=== PATIENT | male | born 1940 | race Caucasian/White ===

== ENCOUNTER 2016-05-08 16:58 | Inpatient (IN) | payer OTHER ==
[2016-05-08] MEDS ORDERED: NS 500 ML IV ONE (17:13)
[2016-05-08] MEDS ORDERED: NS 1,000 ML IV ONE (17:24)
[2016-05-08 18:05] LABS: INR 1.09 (0.83-1.16)
[2016-05-08 18:10] LABS: % IMMATURE GRANULYOCYTES 1.2 % (0.0-1.1); ABSOLUTE IMMATURE GRANULOCYTES 0.14 10^3/uL (0.00-0.10); ADD DIFF? NO; HEMATOCRIT 38.1 % (40.0-51.0); HEMOGLOBIN 13.1 g/dL (13.7-17.5); MEAN CELL HEMOGLOBIN CONCENTR. 34.4 g/dL (32.4-36.7); MEAN PLATELET VOLUME 11.3 fL (8.7-11.7); PLATELET COUNT 112 10^3/uL (150-400); RED BLOOD CELL COUNT 3.97 10^6/uL (4.40-6.38); RED CELL DISTRIBUTION WIDTH 13.9 % (11.5-15.2)
[2016-05-08 18:11] LABS: ADD MORPH? NO; ADD SCAN? NO
[2016-05-08 18:19] LABS: ALANINE AMINOTRANSFERASE 53 IU/L (21-72); ALBUMIN 4.1 g/dL (3.5-5.0); ALKALINE PHOSPHATASE 69 IU/L (38-126); ANION GAP 12 mEq/L (8-16); ASPARTATE AMINOTRANSFERASE 71 IU/L (17-59); BILIRUBIN,TOTAL 1.2 mg/dL (0.1-1.4); BILIRUBIN-CONJUGATED 0.3 mg/dL (0.0-0.5); BILIRUBIN-UNCONJUGATED 0.9 mg/dL (0.0-1.1); CALCIUM 9.7 mg/dL (8.5-10.4); CARBON DIOXIDE 23 mEq/l (22-31); CHLORIDE 105 mEq/L (97-110); CREATININE 1.2 mg/dL (0.7-1.3); GLOMERULAR FILTRATION RATE 59; GLUCOSE 84 mg/dL (70-100); POTASSIUM 4.3 mEq/L (3.5-5.2); SODIUM 140 mEq/L (134-144); TOTAL PROTEIN 6.7 g/dL (6.3-8.2)
[2016-05-08 18:28] LABS: TROPONIN I 0.067 ng/mL (0-0.034)
--- NOTE | 2016-05-08 18:29 | EDPHY ---
H & P Stated Complaint: Found by neighbors >1Hr on floor, unable to get up, inc urine , hypoxic 86%R Time Seen by Provider: 05/08/16 17:03 HPI/ROS: Chief complaint: Found down, altered mental status History of present illness: This is a 75-year-old male brought to the emergency department by EMS after being found down in his apartment. Apparently neighbors found him on the floor. They believe he was on the ground for at least an hour if not more. EMS was called to provide lift assist. EMS reports when they got to the patient's house he seemed somewhat altered and unable to get himself up or ambulate at which time they brought him here. On my evaluation patient appears altered, when asked how he feels he states he feels well, but further discussion becomes garbled. Review of systems: Unable to obtain secondary level of consciousness - Personal History Current Tetanus Diphtheria and Acellular Pertussis (TDAP): Yes Tetanus Vaccine Date: 07/25/2013 - Medical/Surgical History Hx Asthma: Yes Hx Chronic Respiratory Disease: No Hx Diabetes: No Hx Cardiac Disease: Yes Hx Renal Disease: No Hx Cirrhosis: No Hx Alcoholism: No Hx HIV/AIDS: No Hx Splenectomy or Spleen Trauma: No Other PMH: BOWEL RESECTION S/P SBO, MILD ASTHMA, CHRONIC SINUSITUS, DYSLIPIDEMIA , DEPRESSION, GOUT, HYPOTHYROIDISM, HTN,. L HAND PICHARDO, THYROID CA, PROSTATE CA ,. MENIERES - Social History Smoking Status: Former smoker - Physical Exam Exam: General Appearance: Alert, unwell appearing. Eyes: Pupils equal and round no pallor or injection. ENT, Mouth: Mucous membranes moist. Respiratory: Lung sounds are globally diminished. Cardiovascular: Regular rate and rhythm. Gastrointestinal: Abdomen is soft and non tender, no masses, bowel sounds normal. Neurological: Alert, not oriented. Decreased strength globally. Skin: Warm and dry, no rashes. Musculoskeletal: Neck is supple non tender. Extremities are symmetrical, full range of motion. Psychiatric: There is no agitation. Constitutional: Initial Vital Signs Temperature (C) 38.3 C 05/08/16 17:13 Heart Rate 99 05/08/16 17:13 Respiratory Rate 20 05/08/16 17:13 Blood Pressure 108/65 05/08/16 17:13 O2 Sat (%) 92 05/08/16 17:13 O2 Delivery Mode Nasal Cannula O2 (L/minute) 4 Allergies/Adverse Reactions: aspirin [Aspirin] Allergy (Severe, Verified 03/22/15 14:56) Asthma Exacerbation NSAIDS (Non-Steroidal Anti-Inflamma [Nsaids] Allergy (Severe, Verified 03/22/15 14:56) Asthma Exacerbation levofloxacin [From Levaquin] Allergy (Verified 03/22/15 14:56) Home Medications: Medication Instructions Recorded Albuterol [Proventil Inhaler HFA 2 puffs IH Q4 PRN 12/29/12 (*)] Atorvastatin Calcium [Lipitor 10 10 mg PO DAILY 12/29/12 mg (*)] Colchicine [Colchicine (*)] 0.6 mg PO DAILY 12/29/12 QUEtiapine FUMARATE [Seroquel 50 50 - 100 mg PO HS 12/29/12 mg (*)] buPROPion XL [Wellbutrin 150mg XL] 450 mg PO DAILY 12/29/12 busPIRone [Buspar (*)] 5 mg PO HS 12/29/12 Allopurinol [Allopurinol 100 MG 100 mg PO DAILY 03/22/15 (*)] Alprazolam 2 mg PO DAILY PRN 03/22/15 Bethistine 16mg 16 mg PO TID 03/22/15 Budesonide 1 mg IH DAILY 03/22/15 Budesonide/Formoterol 160/4.5 2 puffs IH BID 03/22/15 [Symbicort 160-4.5 Mcg Inh (*)] Esomeprazole Magnesium [Nexium] 20 mg PO DAILY 03/22/15 FEXOFENADINE HCL 60 mg PO BID 03/22/15 Imiquimod [Zyclara] 1 gm TP HS 03/22/15 Levothyroxine [Synthroid 125 mcg 250 mcg PO DAILY06 03/22/15 (*)] Lorazepam [Ativan] 0.5 mg PO BID PRN 03/22/15 Montelukast Sodium [Singulair 10 10 mg PO DAILY@1800 03/22/15 mg (*)] [place]-3 Ethyl Est-Lovaza [Lovaza 1 1 gm PO TID 03/22/15 gm (*)] Psyllium Seed (with Sugar) 1 each PO DAILY 03/22/15 [Metamucil Fiber Wafer] Spironolactone [Aldactone 25 MG 25 mg PO BID 03/22/15 (*)] Clopidogrel Bisulfate [Plavix (*)] 75 mg PO DAILY #30 tab 03/24/15 Atorvastatin Calcium [Lipitor 10 10 mg PO DAILY #30 tab 03/30/15 mg (*)] Cefuroxime Axetil [Ceftin (*)] 500 mg PO BID #12 tab 03/30/15 Clopidogrel Bisulfate [Plavix (*)] 75 mg PO DAILY #0 tab 03/30/15 Zolpidem Tartrate [Ambien 5MG (*)] 10 mg PO HS PRN #7 tab 03/30/15 predniSONE 20 mg PO DAILY #30 tablet 03/30/15 Medical Decision Making - Diagnostics Imaging: Chest x-ray as reviewed by myself and my attending physician Dr. Corona Solis concerning for early pneumonia, see report for specific details ED Course/Re-evaluation: Patient discussed with my secondary supervising physician Dr. Corona Solis. Patient presents to the emergency department with EMS after being found down and altered. On presentation patient is febrile and hypoxic. He is unwell appearing. Evaluation is concerning for developing pneumonia. Further he appears to have developed a rhabdomyolysis from lying on the floor. He does have mildly elevated troponin. Concerned that this is secondary to rhabdomyolysis. He is not able to take oral and is allergic to aspirin. He did meet sepsis screening criteria but did not meet criteria for severe sepsis. He is IV hydrated. At the recommendation of Mr. Asael Ledesma, patient's physician outpatient physical therapist assistant who will admit him he is started on cefepime 1 g IV and azithromycin 500 mg IV. Patient is admitted for further evaluation and care. Differential Diagnosis: Included but not limited to CVA, cardiac dysrhythmias, ACS, infections including pneumonia and influenza and urinary tract infection, electrolyte disturbances - Data Points Laboratory Results: Laboratory Results 05/08/16 17:35 05/08/16 17:35 05/08/16 05/08/16 05/08/16 17:35 17:35 17:35 WBC RBC Hgb Hct MCV MCH MCHC RDW Plt Count MPV Neut % (Auto) Lymph % (Auto) [place] % (Auto) Eos % (Auto) Baso % (Auto) Nucleat RBC Rel Count Absolute Neuts (auto) Absolute Lymphs (auto) Absolute Monos (auto) Absolute Eos (auto) Absolute Basos (auto) Absolute Nucleated RBC Immature Gran % Immature Gran # PT 14.0 SEC SEC (12.0-15.0) INR 1.09 (0.83-1.16) APTT 20.0 SEC L SEC (23.0-38.0) Sodium 140 mEq/L mEq/L (134-144) Potassium 4.3 mEq/L mEq/L (3.5-5.2) Chloride 105 mEq/L mEq/L (97-110) Carbon Dioxide 23 mEq/l mEq/l (22-31) Anion Gap 12 mEq/L mEq/L (8-16) BUN 28 mg/dL H mg/dL (7-23) Creatinine 1.2 mg/dL mg/dL (0.7-1.3) Estimated GFR 59 Glucose 84 mg/dL mg/dL (70-100) Calcium 9.7 mg/dL mg/dL (8.5-10.4) Total Bilirubin 1.2 mg/dL mg/dL (0.1-1.4) Conjugated Bilirubin 0.3 mg/dL mg/dL (0.0-0.5) Unconjugated Bilirubin 0.9 mg/dL mg/dL (0.0-1.1) AST 71 IU/L H IU/L (17-59) ALT 53 IU/L IU/L (21-72) Alkaline Phosphatase 69 IU/L IU/L (38-126) Creatine Kinase 4791 IU/L H IU/L (0-224) CK-MB (CK-2) Fraction 1.94 ng/mL ng/mL (0-3.19) CK-MB (CK-2) % 0.0 % % (0.0-4.0) Creatine Kinase Interp NEGATIVE (NEGATIVE) Troponin I 0.067 ng/mL H ng/mL (0-0.034) NT-Pro-B Natriuret Pep 420 pg/mL H pg/mL (0-125) Total Protein 6.7 g/dL g/dL (6.3-8.2) Albumin 4.1 g/dL g/dL (3.5-5.0) 05/08/16 05/08/16 17:35 17:25 WBC 12.12 10^3/uL H 10^3/uL (3.80-9.50) RBC 3.97 10^6/uL L 10^6/uL (4.40-6.38) Hgb 13.1 g/dL L g/dL (13.7-17.5) Hct 38.1 % L % (40.0-51.0) MCV 96.0 fL fL (81.5-99.8) MCH 33.0 pg pg (27.9-34.1) MCHC 34.4 g/dL g/dL (32.4-36.7) RDW 13.9 % % (11.5-15.2) Plt Count 112 10^3/uL L 10^3/uL (150-400) MPV 11.3 fL fL (8.7-11.7) Neut % (Auto) 87.8 % H % (39.3-74.2) Lymph % (Auto) 2.5 % L % (15.0-45.0) [place] % (Auto) 7.9 % % (4.5-13.0) Eos % (Auto) 0.4 % L % (0.6-7.6) Baso % (Auto) 0.2 % L % (0.3-1.7) Nucleat RBC Rel Count 0.0 % % (0.0-0.2) Absolute Neuts (auto) 10.64 10^3/uL H 10^3/uL (1.70-6.50) Absolute Lymphs (auto) 0.30 10^3/uL L 10^3/uL (1.00-3.00) Absolute Monos (auto) 0.96 10^3/uL H 10^3/uL (0.30-0.80) Absolute Eos (auto) 0.05 10^3/uL 10^3/uL (0.03-0.40) Absolute Basos (auto) 0.03 10^3/uL 10^3/uL (0.02-0.10) Absolute Nucleated RBC 0.00 10^3/uL 10^3/uL (0-0.01) Immature Gran % 1.2 % H % (0.0-1.1) Immature Gran # 0.14 10^3/uL H 10^3/uL (0.00-0.10) PT INR APTT Sodium Potassium Chloride Carbon Dioxide Anion Gap BUN Creatinine Estimated GFR Glucose Calcium Total Bilirubin 1.2 mg/dL mg/dL (0.1-1.4) Conjugated Bilirubin Unconjugated Bilirubin AST ALT Alkaline Phosphatase Creatine Kinase CK-MB (CK-2) Fraction CK-MB (CK-2) % Creatine Kinase Interp Troponin I NT-Pro-B Natriuret Pep Total Protein Albumin Medications Given: Discontinued Medications Sodium Chloride (Ns) 500 mls @ 0 mls/hr IV ONCE ONE PRN Reason: As Directed Stop: 05/08/16 17:14 Last Admin: 05/08/16 18:20 Dose: 500 mls Sodium Chloride (Ns) 1,000 mls @ 0 mls/hr IV ONCE ONE PRN Reason: Wide Open Stop: 05/08/16 17:25 Last Admin: 05/08/16 17:38 Dose: 1,000 mls Azithromycin 500 mg/ Dextrose 255 mls @ 255 mls/hr IV EDNOW ONE PRN Reason: Protocol Stop: 05/08/16 19:52 Last Admin: 05/08/16 19:51 Dose: 255 mls Cefepime HCl 1 gm/ Dextrose 50 mls @ 100 mls/hr IV EDNOW ONE PRN Reason: Protocol Stop: 05/08/16 19:22 Last Admin: 05/08/16 20:53 Dose: 50 mls Methylprednisolone Sodium Succinate (Solu-Medrol) 125 mg IVP ONCE ONE Stop: 05/08/16 23:31 Last Admin: 05/08/16 23:52 Dose: 125 mg Sodium Chloride (Ns *For Sepsis Order Set Only*) 2,994 ml 30 ml/kg (2994 ml) IV EDNOW ONE Stop: 05/08/16 19:02 Last Admin: 05/08/16 19:34 Dose: 2,994 ml Departure - Departure Disposition: [facility] Inpatient Acute Clinical Impression: Elevated troponin Pneumonia Qualifiers: Pneumonia type: due to unspecified organism Laterality: left Lung location: unspecified part of lung Qualified Code(s): J18.9 - Pneumonia, unspecified organism Rhabdomyolysis Qualifiers: Rhabdomyolysis type: non-traumatic Qualified Code(s): M62.82 - Rhabdomyolysis Condition: Fair
[2016-05-08 18:41] LABS: CK-MB INTERPRETATION NEGATIVE (NEGATIVE); CREATINE KINASE-MB FRACTION 1.94 ng/mL (0-3.19)
[2016-05-08] MEDS ORDERED: CEFEPIME HCL 1 GM in D5W 50 ML IV ONE (18:53)
[2016-05-08] MEDS ORDERED: AZITHROMYCIN IV 500 MG in D5W 250 ML IV ONE (18:53)
[2016-05-08] MEDS ORDERED: NS 1,000 ML BAG *FOR SEPSIS ORDER SET ONLY IV ONE (19:01)
[2016-05-08 19:11] LABS: BILIRUBIN,TOTAL 1.2 mg/dL (0.1-1.4)
[2016-05-08] MEDS ORDERED: ACETAMINOPHEN 325 MG TAB PO PRN (19:45)
[2016-05-08] MEDS ORDERED: NS 1,000 ML IV SCH (19:45)
[2016-05-08] MEDS ORDERED: ONDANSETRON 4 MG/2 ML VIAL IVP PRN (19:45)
[2016-05-08] MEDS ORDERED: ONDANSETRON DISINTEGRATING 4 MG TAB PO PRN (19:45)
[2016-05-08] MEDS ORDERED: diphenhydrAMINE 25 MG CAP PO PRN (19:45)
[2016-05-08] MEDS ORDERED: methylPREDNISolone SOD SUCC 125 MG/2 ML VIAL IVP ONE ×2 (19:54→23:30)
--- NOTE | 2016-05-08 20:05 | CPEKG ---
Heart Rate: 86 RR Interval: 698 P-R Interval: 208 QRSD Interval: 96 QT Interval: 372 QTC Interval: 445 P [place]: 47 QRS [place]: 71 T Wave [place]: 52 EKG Severity - ABNORMAL ECG - EKG Impression: SINUS RHYTHM EKG Impression: LEFT VENTRICULAR HYPERTROPHY Electronically Signed By: Corona Solis 08-May-2016 20:06:27
--- NOTE | 2016-05-08 20:44 | GHP ---
[f rep st] HISTORY AND PHYSICAL DATE OF ADMISSION: 05/08/2016 REASON FOR ADMISSION: Altered mental status, found down. Probable early pneumonia. HISTORY OF PRESENT ILLNESS: The patient was found down this afternoon in his apartment. He was see n by myself yesterday in our office with concerns over increasing lung congestion. The exam was [place] rly benign. He was given a Zithromax Z-Hubert. It sounds like he took his first 2 pills this morning. He states he had a fairly peaceful night but woke up this morning to significant increase in lung congestion and generally felt tired and shaky. He did a nebulizer treatment somewhere around mid da y and was excessively shaky. For this reason, he took 2 Valium tablets which he says were small alt pradeep the dose is somewhat unclear. He was then found by friends down and EMS services were called. His history other than that is somewhat sketchy. He has been having a sense of increasing asthma flare over the past 3 days. He has been using albuterol plus budesonide nebulizers, and he took 2 t ablets of Zithromax this morning. No other acute changes that he can recall. He denies any pain fro m any sense of fall or trauma. He denies pain from lying on the floor presumably for several hours. PAST MEDICAL HISTORY: Significant for CVA now on Plavix. He has an aspirin allergy. He has had so me mild speech deficits which have gradually improved. He has some right upper extremity weakness w hich was also improved. He has a fairly complex past history of asthma and pneumonia. He uses inha lers on a chronic basis. He has known atherosclerosis by heart scan score. He is on testosterone r eplacement. 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 ALLERGIES: Aspirin and NSAIDs due to flaring of asthma, Levaquin with tendon rupture. CURRENT MEDICATIONS: Zolpidem p.r.n. insomnia. He generally does not use this very frequently. We llbutrin XL 100 mg in the morning, quinine 200 mg daily, Lipitor 10 mg daily, chlorthalidone 50 mg p .o. q.a.m., colchicine 0.6 mg q.8 hours p.r.n. gout, albuterol and budesonide inhalers, mineral supp lements, Plavix 75 mg daily, vitamin D 5000 units daily, niacin 250 mg daily, psyllium, Xolair injec tion, Nexium, BuSpar, Singulair, omega-3 fish oil, levothyroxine total dose 250 mcg daily, spironola ctone 25 mg daily, allopurinol 600 mg daily, quetiapine total dose 100 mg nightly, Symbicort 1 inhal ation b.i.d. SOCIAL HISTORY: Lives independently. Has family out of town. Has social support with many friends . He does not smoke or drink. FAMILY HISTORY: Father , had complications with diabetes. Mother is , had a history of brain tumor. Siblings alive. Not much else is known. IMMUNIZATIONS: He has had a prior Pneumovax. He has had a flu vaccine this year. REVIEW OF SYSTEMS: Somewhat limited given altered mental status and sedation. He states that the n ight was fairly smooth. He awoke this morning really feeling quite fatigued with some fever, shakes , and chills. He denies headache or significant sinus congestion. No ear pain. Hearing loss remai ns to be a profound challenge, no sore throat. He denies neck pain at this time. He feels the lung s are congested with some sense of shortness of breath. He is more wheezy than his typical baseline . He denies chest pain or palpitations. He did eat some breakfast although minimal. He did not ta ke his medicines this morning. He does not have nausea or vomiting. He has not had any bowel chall enges. He was able to urinate within the last hour. He denies any other musculoskeletal pain or ac shravan skin issues. He has complex scarring and retraction from prior upper extremity traumas. PHYSICAL EXAMINATION: VITAL SIGNS: Blood pressure 108/65, heart rate 99, respiratory rate 20, temp erature 38.3, saturations 92% 2 L. GENERAL APPEARANCE: Pleasant, mildly sedated male. HEENT: Evid ence of prior cataract surgery. Pupils are symmetric. Sclerae without injection or matting. Nasal mucosa somewhat dry. Oropharynx somewhat dry. Neck without masses. Range of motion of head does not induce pain. UPPER EXTREMITIES: With prior surgeries, contractures, and scarring. Without any edema, 2/4 radial pulses with normal capillary refill. LUNGS: Increased expiratory wheeze, some p roductivity to cough. Breath sounds more diminished in the right base. HEART: Regular rate and rh ythm. Borderline tachycardia. ABDOMEN: Diminished bowel sounds. Soft, nontender, nondistended. No guarding, rebound, or masses. SKIN: Warm to touch. No diaphoresis, no evidence of trauma or ec chymosis. LOWER EXTREMITIES: 1+ edema, stable finding, no evidence of ecchymosis, no hematomas. N eurovascularly otherwise intact. NEUROLOGIC: He is somewhat sluggish to answer, somewhat childish likely secondary to his medication intake. His speech has slight increased limitations in word form ation which may relate to his old stroke aggravated by his current health state complicated by the a ddition of Valium. No other focal deficits are appreciated. REPORTS: Chest x-ray suggestive for potential fluid overload or bibasilar infiltrates. CT neck com plicated arthritis, no acute injuries. CT head: Old infarct, no acute changes. He has received 50 0 mg of Zithromax and a gram of cefepime in the ER. ASSESSMENT: 1. Probable early pneumonia on superimposed complicated asthma. Will treat as such. Will continue antibiotic regimen daily. Plan: Will check a chest x-ray in the morning. Add a dose of Solu-Medro l tonight and then 40 mg of prednisone daily starting tomorrow. I will give him a dose of Plavix to day as he does not think he took it this morning given his prior history of cerebrovascular accident . 2. Found down elevated creatine kinase. This is just shy of 5000. Will provide IV fluids. Follow this closely given some potential for fluid overload. He may need some Lasix in the morning. 3. Underlying insomnia with depression which is likely a bipolar variant. Continue Seroquel 100 mg nightly. 4. Asthma: Will treat with nebs q.4 hours, IV steroids, and antibiotics. At this point, resume in halers in the morning when he seems to be more capable and adept at this routine. 5. Prior stroke given some what sounds like increased speech deficits. Will have speech therapy ev aluate. Will provide a clear liquid diet for now as things progress. Normalize his diet. Given the complexity of his current issues, it is anticipated he will stay more than 2 midnights. /[id number]/MODL
[2016-05-08 21:18] LABS: COLOR YELLOW; LEUKOCYTE ESTERASE,URINE NEGATIVE (NEGATIVE); NITRITE,URINE NEGATIVE (NEGATIVE)
[2016-05-08 21:19] LABS: MUCUS TRACE /lpf (NONE-1+)
[2016-05-08] MEDS: CLOPIDOGREL BISULFATE 75 MG TAB PO SCH (23:29)
[2016-05-08] MEDS: QUEtiapine FUMARATE 50 MG TAB PO SCH (23:29)
[2016-05-08] MEDS: ZOLPIDEM TARTRATE 5 MG TAB PO PRN (23:35)
[2016-05-09 05:13] LABS: ANION GAP 11 mEq/L (8-16); CALCIUM 8.8 mg/dL (8.5-10.4); CARBON DIOXIDE 19 mEq/l (22-31); CHLORIDE 112 mEq/L (97-110); CREATININE 1.2 mg/dL (0.7-1.3); GLOMERULAR FILTRATION RATE 59; GLUCOSE 111 mg/dL (70-100); POTASSIUM 4.8 mEq/L (3.5-5.2); SODIUM 142 mEq/L (134-144)
[2016-05-09 05:36] LABS: % IMMATURE GRANULYOCYTES 0.7 % (0.0-1.1); ABSOLUTE IMMATURE GRANULOCYTES 0.12 10^3/uL (0.00-0.10); ADD DIFF? NO; ADD MORPH? NO; ADD SCAN? NO; ATYPICAL LYMPHOCYTE FLAG 0 (0-99); FRAGMENT RBC FLAG 0 (0-99); HEMATOCRIT 39.6 % (40.0-51.0); HEMOGLOBIN 13.6 g/dL (13.7-17.5); LEFT SHIFT FLG 50 (0-99); LIPEMIA HEMOLYSIS FLAG 90 (0-99); MEAN CELL HEMOGLOBIN 32.8 pg (27.9-34.1); MEAN CELL HEMOGLOBIN CONCENTR. 34.3 g/dL (32.4-36.7); MEAN CELL VOLUME 95.4 fL (81.5-99.8); MEAN PLATELET VOLUME 11.3 fL (8.7-11.7); PLATELET CLUMPS FLAG 10 (0-99); PLATELET COUNT 123 10^3/uL (150-400); RED BLOOD CELL COUNT 4.15 10^6/uL (4.40-6.38)
[2016-05-09 05:37] LABS: TROPONIN I 0.067 ng/mL (0-0.034)
[2016-05-09 05:40] LABS: CREATINE KINASE-MB FRACTION 1.92 ng/mL (0-4.55)
[2016-05-09] MEDS: ALBUTEROL 3 ML DEYVIAL IH SCH ×7 (05:40→21:16)
[2016-05-09] MEDS ORDERED: ENOXAPARIN 30 MG/0.3 ML SYR SC SCH (09:00)
[2016-05-09] MEDS: D5W 1/2 NS 1,000 ML IV SCH ×2 (09:22→23:06)
[2016-05-09] MEDS: predniSONE 20 MG TAB PO SCH (09:33)
[2016-05-09] MEDS: CLOPIDOGREL BISULFATE 75 MG TAB PO SCH (09:34)
[2016-05-09] MEDS: CEFEPIME HCL 1 GM in D5W 50 ML IV SCH (09:34)
[2016-05-09] MEDS: ENOXAPARIN 40 MG/0.4 ML SYR SC SCH (09:38)
--- NOTE | 2016-05-09 09:49 | SOAPPROG ---
SOAP Progress Note Assessment/Plan: Assessment: 75 yo male with LLL PNA -PNA - cont on cefepime/azithromycin, saturations doing well, on stress dose steroids, passed swallow eval will advance diet. -h/o RAD - cont w/ nebs, prednisone -insomnia - cont on zolpidem/quetiapine -h/o cva - plavix -dvt proph - lovenox -hyperchloremia - changed ivf to D5 1/2 NS -Elev CK - recheck tomorrow w/ cont'd fluids, watch for fluid overload but clinically today ok -Dispo - cont iv abx at least today, does not need telemetry can be moved off tele. Plan: 05/09/16 09:45 Subjective: Would like to eat, doing ok, sleepy Objective: Vital Signs Temp Pulse Resp BP Pulse Ox 36.3 C 55 L 16 121/79 H 93 05/09/16 07:59 05/09/16 08:49 05/09/16 08:49 05/09/16 07:59 05/09/16 08:49 Laboratory Results 05/09/16 04:40 05/09/16 04:40 05/08/16 05/09/16 05/10/16 05:59 05:59 05:59 Intake Total 3950 Output Total 200 475 Balance 3750 -475 PT 14.0 SEC (12.0-15.0) 05/08/16 17:35 INR 1.09 (0.83-1.16) 05/08/16 17:35 Gen: pleasant, tired from past 24 hours events,some speech impairment from prior cva, hard of hearing HEENT: perrl, eomi Neck: soft supple CV: rrr CHEST: bronchial bs bilaterally lower bases L>R Abd: soft nt nd Ext: no edema ICD10 Worksheet Patient Problems: Problems Problem Status Onset CVA (cerebral vascular accident) Acute Acute ischemic stroke Acute Pneumonia Acute Rhabdomyolysis Acute Elevated troponin Acute
[2016-05-09] MEDS: AZITHROMYCIN IV 500 MG in D5W 250 ML IV SCH (10:33)
[2016-05-09] MEDS ORDERED: SODIUM CL NASAL 45 ML BTL NS PRN (17:07)
[2016-05-09] MEDS ORDERED: ALBUTEROL 60 PUFFS/8 GM MDI IH PRN (17:07)
[2016-05-09] MEDS ORDERED: FEXOFENADINE HCL 60 MG PO PRN (17:07)
[2016-05-09] MEDS ORDERED: CETIRIZINE 10 MG TAB PO PRN (17:22)
[2016-05-09] MEDS: MONTELUKAST SODIUM 10 MG TAB PO SCH (18:34)
[2016-05-09] MEDS ORDERED: LORazepam 0.5 MG TAB PO SCH (21:00)
[2016-05-09] MEDS: BUDESONIDE/FORMOTEROL 160/4.5 60 PUFFS/MDI IH SCH (21:18)
[2016-05-09] MEDS: buPROPion XL 150 MG TAB PO SCH (23:07)
[2016-05-09] MEDS: busPIRone 5 MG TAB PO SCH (23:07)
[2016-05-09] MEDS: QUEtiapine FUMARATE 50 MG TAB PO SCH (23:07)
[2016-05-09] MEDS: ZOLPIDEM TARTRATE 5 MG TAB PO PRN (23:07)
[2016-05-10] MEDS: ALBUTEROL 3 ML DEYVIAL IH SCH ×5 (01:41→21:10)
[2016-05-10] MEDS: BUDESONIDE/FORMOTEROL 160/4.5 60 PUFFS/MDI IH SCH ×2 (08:24→21:11)
[2016-05-10] MEDS ORDERED: PSYLLIUM HUSK 0.52 GM PO SCH (09:00)
[2016-05-10] MEDS ORDERED: NON-FORMULARY NEW DRUG (Esomeprazole Magnesium [Nexium] 20 MG) PO SCH (09:00)
[2016-05-10] MEDS ORDERED: ALLOPURINOL 300 MG TAB PO SCH (09:00)
[2016-05-10] MEDS ORDERED: BUDESONIDE 0.5 MG/2 ML AMPUL.NEB IH SCH (09:00)
[2016-05-10] MEDS: ENOXAPARIN 40 MG/0.4 ML SYR SC SCH (09:21)
[2016-05-10] MEDS: CEFEPIME HCL 1 GM in D5W 50 ML IV SCH (09:21)
[2016-05-10] MEDS: AZITHROMYCIN IV 500 MG in D5W 250 ML IV SCH (09:21)
[2016-05-10] MEDS: OMEGA-3 FATTY ACIDS 1,000 MG CAP PO SCH (09:22)
[2016-05-10] MEDS: CHLORTHALIDONE 25 MG TAB PO SCH (09:22)
[2016-05-10] MEDS: SPIRONOLACTONE 25 MG TAB PO SCH (09:22)
[2016-05-10] MEDS: CLOPIDOGREL BISULFATE 75 MG TAB PO SCH (09:22)
[2016-05-10] MEDS: PSYLLIUM METAMUCIL 1 PKT PO SCH (09:22)
[2016-05-10] MEDS: predniSONE 20 MG TAB PO SCH (09:22)
[2016-05-10] MEDS: COLCHICINE 0.6 MG CAP/TAB PO SCH (09:23)
[2016-05-10] MEDS: PANTOPRAZOLE SODIUM 40 MG TAB PO SCH (09:23)
[2016-05-10] MEDS: buPROPion XL 150 MG TAB PO SCH ×2 (09:23→23:10)
[2016-05-10] MEDS: ATORVASTATIN CALCIUM 10 MG TAB PO SCH (09:23)
[2016-05-10] MEDS: busPIRone 5 MG TAB PO SCH ×2 (09:23→23:11)
[2016-05-10] MEDS: LEVOTHYROXINE 125 MCG TAB PO SCH (09:25)
[2016-05-10 10:02] LABS: % IMMATURE GRANULYOCYTES 0.6 % (0.0-1.1); ABSOLUTE IMMATURE GRANULOCYTES 0.08 10^3/uL (0.00-0.10); ADD DIFF? NO; ADD MORPH? NO; ADD SCAN? NO; ATYPICAL LYMPHOCYTE FLAG 0 (0-99); FRAGMENT RBC FLAG 0 (0-99); HEMOGLOBIN 12.6 g/dL (13.7-17.5); LEFT SHIFT FLG 10 (0-99); LIPEMIA HEMOLYSIS FLAG 90 (0-99); MEAN CELL HEMOGLOBIN 33.2 pg (27.9-34.1); MEAN CELL HEMOGLOBIN CONCENTR. 34.1 g/dL (32.4-36.7); MEAN CELL VOLUME 97.6 fL (81.5-99.8); MEAN PLATELET VOLUME 11.3 fL (8.7-11.7); PLATELET CLUMPS FLAG 0 (0-99); PLATELET COUNT 121 10^3/uL (150-400); RED BLOOD CELL COUNT 3.79 10^6/uL (4.40-6.38); RED CELL DISTRIBUTION WIDTH 13.9 % (11.5-15.2)
[2016-05-10 10:13] LABS: ANION GAP 9 mEq/L (8-16); CALCIUM 8.8 mg/dL (8.5-10.4); CARBON DIOXIDE 22 mEq/l (22-31); CHLORIDE 111 mEq/L (97-110); GLOMERULAR FILTRATION RATE > 60; GLUCOSE 133 mg/dL (70-100); POTASSIUM 3.7 mEq/L (3.5-5.2); SODIUM 142 mEq/L (134-144)
[2016-05-10 11:37] LABS: CK-MB INTERPRETATION NEGATIVE (NEGATIVE); CREATINE KINASE-MB FRACTION 2.87 ng/mL (0-3.19)
[2016-05-10] MEDS: D5W 1/2 NS 1,000 ML IV SCH (13:07)
--- NOTE | 2016-05-10 14:29 | SOAPPROG ---
SOAP Progress Note Assessment/Plan: Assessment: Plan: 05/10/16 14:27 LLL pneumonia: continues to improve. WBC count continues to drop. Afebrile. Currently on IV azithromycin/cefepime. Will switch to PO antibx for tomorrow, hoping to d/c in am. Oxygen saturations ok. Would like cough suppressant to use at night. RAD: on nebs, prednisone CVA: remains on Plavix increased CK: continue to decline. Creatinine normal. 05/10/16 14:31 Subjective: Feeling ok. Still coughing some, with some muscular tenderness. Eating ok. Objective: Vital Signs Temp Pulse Resp BP Pulse Ox 37.7 C 68 20 122/71 H 93 05/10/16 07:45 05/10/16 07:45 05/10/16 07:45 05/10/16 07:45 05/10/16 07:45 Laboratory Results 05/10/16 09:52 05/10/16 09:52 05/09/16 05/10/16 05/11/16 05:59 05:59 05:59 Intake Total 3950 2170 Output Total 200 950 Balance 3750 1220 PT 14.0 SEC (12.0-15.0) 05/08/16 17:35 INR 1.09 (0.83-1.16) 05/08/16 17:35 General: up in chair, awake, alert, NAD Lungs: diminished breath sounds, no crackles, mild wheezing anteriorly Cardiovascular: RRR without murmur Abdomen: +bowel sounds, soft, NT Extremities: mild edema ICD10 Worksheet Patient Problems: Problems Problem Status Onset Elevated troponin Acute Pneumonia Acute Rhabdomyolysis Acute Acute ischemic stroke Acute CVA (cerebral vascular accident) Acute
[2016-05-10] MEDS ORDERED: ALBUTEROL 3 ML DEYVIAL IH PRN (14:46)
[2016-05-10] MEDS: MONTELUKAST SODIUM 10 MG TAB PO SCH (18:01)
[2016-05-10] MEDS: guaiFENesin/CODEINE PHOS 10 ML UDCUP PO PRN (20:48)
[2016-05-10] MEDS: QUEtiapine FUMARATE 50 MG TAB PO SCH (23:10)
[2016-05-10] MEDS: ZOLPIDEM TARTRATE 5 MG TAB PO PRN (23:11)
[2016-05-11] MEDS: guaiFENesin/CODEINE PHOS 10 ML UDCUP PO PRN ×3 (02:34→23:10)
[2016-05-11] MEDS: ALBUTEROL 3 ML DEYVIAL IH SCH ×5 (03:02→21:20)
[2016-05-11] MEDS: BUDESONIDE/FORMOTEROL 160/4.5 60 PUFFS/MDI IH SCH ×2 (08:34→21:20)
[2016-05-11] MEDS: AMOX/CLAVUL 1000 MG ER TAB PO SCH (09:30)
[2016-05-11] MEDS: COLCHICINE 0.6 MG CAP/TAB PO SCH (09:30)
[2016-05-11] MEDS: PANTOPRAZOLE SODIUM 40 MG TAB PO SCH (09:30)
[2016-05-11] MEDS: OMEGA-3 FATTY ACIDS 1,000 MG CAP PO SCH (09:30)
[2016-05-11] MEDS: PSYLLIUM METAMUCIL 1 PKT PO SCH (09:30)
[2016-05-11] MEDS: ATORVASTATIN CALCIUM 10 MG TAB PO SCH (09:30)
[2016-05-11] MEDS: LEVOTHYROXINE 125 MCG TAB PO SCH (09:31)
[2016-05-11] MEDS: SPIRONOLACTONE 25 MG TAB PO SCH (09:31)
[2016-05-11] MEDS: busPIRone 5 MG TAB PO SCH ×2 (09:31→20:13)
[2016-05-11] MEDS: CHLORTHALIDONE 25 MG TAB PO SCH (09:31)
[2016-05-11] MEDS: buPROPion XL 150 MG TAB PO SCH ×2 (09:31→20:13)
[2016-05-11] MEDS: AZITHROMYCIN 250 MG TAB PO SCH (09:31)
[2016-05-11] MEDS: predniSONE 20 MG TAB PO SCH (09:31)
[2016-05-11] MEDS: CLOPIDOGREL BISULFATE 75 MG TAB PO SCH (09:32)
[2016-05-11] MEDS: ENOXAPARIN 40 MG/0.4 ML SYR SC SCH (09:34)
[2016-05-11 09:53] LABS: % IMMATURE GRANULYOCYTES 0.4 % (0.0-1.1); ABSOLUTE IMMATURE GRANULOCYTES 0.04 10^3/uL (0.00-0.10); ADD DIFF? NO; ADD MORPH? NO; ADD SCAN? NO; ATYPICAL LYMPHOCYTE FLAG 0 (0-99); FRAGMENT RBC FLAG 0 (0-99); HEMATOCRIT 35.3 % (40.0-51.0); HEMOGLOBIN 13.1 g/dL (13.7-17.5); LEFT SHIFT FLG 0 (0-99); LIPEMIA HEMOLYSIS FLAG 90 (0-99); MEAN CELL HEMOGLOBIN CONCENTR. 37.1 g/dL (32.4-36.7); MEAN CELL VOLUME 99.7 fL (81.5-99.8); MEAN PLATELET VOLUME 11.2 fL (8.7-11.7); PLATELET CLUMPS FLAG 0 (0-99); PLATELET COUNT 129 10^3/uL (150-400); RED BLOOD CELL COUNT 3.54 10^6/uL (4.40-6.38); RED CELL DISTRIBUTION WIDTH 15.5 % (11.5-15.2)
[2016-05-11 10:10] LABS: ANION GAP 8 mEq/L (8-16); CALCIUM 8.9 mg/dL (8.5-10.4); CARBON DIOXIDE 23 mEq/l (22-31); CHLORIDE 112 mEq/L (97-110); CREATININE 0.9 mg/dL (0.7-1.3); GLOMERULAR FILTRATION RATE > 60; GLUCOSE 93 mg/dL (70-100); POTASSIUM 3.8 mEq/L (3.5-5.2); SODIUM 143 mEq/L (134-144)
[2016-05-11 10:55] LABS: CK-MB INTERPRETATION NEGATIVE (NEGATIVE); CREATINE KINASE-MB FRACTION 2.25 ng/mL (0-3.19)
--- NOTE | 2016-05-11 11:08 | SOAPPROG ---
SOAP Progress Note Assessment/Plan: Assessment: Plan: 05/10/16 14:27 LLL pneumonia: continues to improve. WBC count continues to drop. Afebrile. Currently on IV azithromycin/cefepime. Will switch to PO antibx for tomorrow, hoping to d/c in am. Oxygen saturations ok. Would like cough suppressant to use at night. RAD: on nebs, prednisone CVA: remains on Plavix increased CK: continue to decline. Creatinine normal. 05/10/16 14:31 05/11/16 11:26 LLL pneumonia: remains afebrile, WBC continues to decrease. Started on PO antibiotics today. Continue walking with PT as much as possible. RAD: on nebs, prednisone. Still with diffuse wheezing despite nebs, prednisone, inhaled steroid and steroid in neb. Ongoing cough likely more related to RAD than pneumonia. I am quite reluctant to d/c pt today given all the smoke in the air and ongoing RAD. Will add solumedrol. Elevated CK: continues to decline slowly. Creatinine remains normal. Subjective: Didn't sleep well last night, and bed is uncomfortable. Still coughing, non- productive. Feels weak. Is walking some with PT. Objective: Vital Signs Temp Pulse Resp BP Pulse Ox 36.8 C 60 14 129/71 H 92 05/11/16 09:00 05/11/16 09:00 05/11/16 09:00 05/11/16 09:00 05/11/16 09:00 Laboratory Results 05/11/16 08:43 05/11/16 08:43 05/10/16 05/11/16 05/12/16 05:59 05:59 05:59 Intake Total 2170 2663 Output Total 950 1050 Balance 1220 1613 PT 14.0 SEC (12.0-15.0) 05/08/16 17:35 INR 1.09 (0.83-1.16) 05/08/16 17:35 General: well-appearning, NAD Lungs: diffuse wheezing throughout, no rales Cardiovascular: RRR withour murmur Abdomen: soft, nt Extremities: mild edema, unchanged ICD10 Worksheet Patient Problems: Problems Problem Status Onset Elevated troponin Acute Pneumonia Acute Rhabdomyolysis Acute Acute ischemic stroke Acute CVA (cerebral vascular accident) Acute
[2016-05-11] MEDS: methylPREDNISolone SOD SUCC 125 MG/2 ML VIAL IVP SCH ×2 (12:45→20:13)
[2016-05-11] MEDS: D5W 1/2 NS 1,000 ML IV SCH (17:02)
[2016-05-11] MEDS: MONTELUKAST SODIUM 10 MG TAB PO SCH (17:04)
[2016-05-11] MEDS: QUEtiapine FUMARATE 50 MG TAB PO SCH (23:06)
[2016-05-11] MEDS: ZOLPIDEM TARTRATE 5 MG TAB PO PRN (23:06)
[2016-05-12] MEDS: guaiFENesin/CODEINE PHOS 10 ML UDCUP PO PRN (04:59)
[2016-05-12] MEDS: LEVOTHYROXINE 125 MCG TAB PO SCH (04:59)
[2016-05-12] MEDS: ALBUTEROL 3 ML DEYVIAL IH SCH ×2 (05:10→09:26)
--- NOTE | 2016-05-12 08:50 | SOAPPROG ---
SOAP Progress Note Assessment/Plan: Assessment: Plan: 05/12/16 08:48 pneumonia--improving --continue po antibiotics RAD with exacerbation--slow progress--d/c home on pred and nebs bipolar with depression variant--stable despite meds and hospital challenge rhabdomyolysis-- improving d/c home Meds called to Kar[facility]o Subjective: He still has moderate cough, wheeze, and shortness of breath, but is feeling better. Sleep is poor. Objective: Vital Signs Temp Pulse Resp BP Pulse Ox 37.1 C 70 18 132/71 H 92 05/11/16 19:52 05/11/16 19:52 05/12/16 05:11 05/11/16 19:52 05/12/16 05:11 Laboratory Results 05/11/16 08:43 05/11/16 08:43 05/11/16 05/12/16 05/13/16 05:59 05:59 05:59 Intake Total 2663 1740 Output Total 1050 2000 Balance 1613 -260 PT 14.0 SEC (12.0-15.0) 05/08/16 17:35 INR 1.09 (0.83-1.16) 05/08/16 17:35 Gen: NAD, ready to go home Lungs: congested, coarse cough, diffuse expiratory wheezes Heart: RRR LE's trace-1+ edema--baseline ICD10 Worksheet Patient Problems: Problems Problem Status Onset Chronic Disease Mgmt/Transitional Care Acute Elevated troponin Acute Pneumonia Acute Rhabdomyolysis Acute Acute ischemic stroke Acute CVA (cerebral vascular accident) Acute
[2016-05-12 09:12] VITALS: BP 124/69; PULSE 58; RESP 20; TEMP 98.6; O2SAT 88
--- NOTE | 2016-05-12 09:24 | GDS ---
[f rep st] DISCHARGE SUMMARY REASON FOR ADMISSION: Pneumonia, clinically improved; reactive airways disease with significant exa cerbation; bipolar with depression, stable; rhabdomyolysis, improving. HOSPITAL COURSE: Patient was admitted through the ER. He had concerns for early sepsis with rigors and pneumonia. He did not meet criteria for sepsis. He was given IV fluids at a high rate given t he finding of elevated creatine kinase from being found down at home. He had a significant increase in reactive airways disease symptomatology. This was treated aggressively with IV steroids, serial nebs, and normalization of his regular inhalers. He was treated initially for pneumonia with cefep yanira and Zithromax. This was transitioned to oral Augmentin ER plus Zithromax. Upon discharge home, he will just be on Augmentin ER b.i.d. He will continue on prednisone 40 mg b.i.d. Continue his n eb plus budesonide treatments as well as his Symbicort. He will continue his regular medications. He will continue with aggressive fluid replacement to continue to flush his kidneys given the rhabdo myolysis. He will be seen in the office in 48 hours for recheck of his underlying asthma and make s ure his lungs have improved. Hopefully we can begin to taper his prednisone down at that point. /[id number]/MODL
[2016-05-12] MEDS: BUDESONIDE/FORMOTEROL 160/4.5 60 PUFFS/MDI IH SCH (09:26)
[2016-05-12] MEDS: methylPREDNISolone SOD SUCC 125 MG/2 ML VIAL IVP SCH (10:20)
[2016-05-12] MEDS: ENOXAPARIN 40 MG/0.4 ML SYR SC SCH (10:21)
[2016-05-12] MEDS: PSYLLIUM METAMUCIL 1 PKT PO SCH (10:21)
[2016-05-12] MEDS: buPROPion XL 150 MG TAB PO SCH (10:21)
[2016-05-12] MEDS: busPIRone 5 MG TAB PO SCH (10:21)
[2016-05-12] MEDS: AZITHROMYCIN 250 MG TAB PO SCH (10:21)
[2016-05-12] MEDS: ATORVASTATIN CALCIUM 10 MG TAB PO SCH (10:22)
[2016-05-12] MEDS: PANTOPRAZOLE SODIUM 40 MG TAB PO SCH (10:22)
[2016-05-12] MEDS: AMOX/CLAVUL 1000 MG ER TAB PO SCH (10:22)
[2016-05-12] MEDS: CHLORTHALIDONE 25 MG TAB PO SCH (10:22)
[2016-05-12] MEDS: OMEGA-3 FATTY ACIDS 1,000 MG CAP PO SCH (10:22)
[2016-05-12] MEDS: CLOPIDOGREL BISULFATE 75 MG TAB PO SCH (10:22)
[2016-05-12] MEDS: SPIRONOLACTONE 25 MG TAB PO SCH (10:22)
[2016-05-12] MEDS: COLCHICINE 0.6 MG CAP/TAB PO SCH (10:30)
[2016-05-12] MEDS ORDERED: predniSONE 20 MG TAB PO SCH (18:00)
== END 2016-05-12 12:04 | disposition home or self-care (01) | DRG 194 ==
LOC: EDUNIT# → F2W 21:06
PROVIDERS: ADMIT Internal Medicine; ATTEND Internal Medicine
DX: J18.9 Pneumonia, unspecified organism (principal); M62.82 Rhabdomyolysis; J45.901 Unspecified asthma with (acute) exacerbation; F31.9 Bipolar disorder, unspecified; E78.5 Hyperlipidemia, unspecified; M10.9 Gout, unspecified; E03.9 Hypothyroidism, unspecified; I10 Essential (primary) hypertension; G47.00 Insomnia, unspecified; Z85.46 Personal history of malignant neoplasm of prostate; Z85.850 Personal history of malignant neoplasm of thyroid; Z87.891 Personal history of nicotine dependence
CPT/HCPCS: 97161-GP; G8978-GP-CJ; G8979-GP-CI; J0456; J0692; J1650; J7626

== ENCOUNTER → 2016-08-01 | Outpatient (CLI) | payer OTHER | LOC: FCPNEURO 23:52 | PROVIDERS: ATTEND Student in an Organized Health Care Education/Training Program | DX: G47.33 Obstructive sleep apnea (adult) (pediatric) (principal) ==

== ENCOUNTER → 2016-08-05 | Outpatient (CLI) | payer OTHER | LOC: FIMAGING 09:23 | PROVIDERS: ATTEND Internal Medicine | DX: J45.20 Mild intermittent asthma, uncomplicated (principal); I77.1 Stricture of artery ==

== ENCOUNTER 2017-05-19 07:33 | Day surgery (SDC) | payer OTHER ==
[2017-05-19] MEDS ORDERED: LIDOCAINE 1% 2 ML INJ ID PRN (07:55)
[2017-05-19] MEDS ORDERED: LR 1,000 ML IV ONE (07:55)
[2017-05-19 08:28] VITALS: PULSE 48
--- NOTE | 2017-05-19 08:50 | PDANEPAE ---
ANE History of Present Illness screening colonoscopy ANE Past Medical History - Cardiovascular History Hx Hypertension: No Hx Arrhythmias: No Hx Chest Pain: No Hx Coronary Artery / Peripheral Vascular Disease: Yes Hx CHF / Valvular Disease: No Hx Palpitations: No Cardiovascular History Comment: coronary artery plaque - Pulmonary History Hx COPD: Yes Hx Asthma/Reactive Airway Disease: Yes Hx Recent Upper Respiratory Infection: No Hx Oxygen in Use at Home: No Hx Sleep Apnea: Yes Sleep Apnea Screening Result - Last Documented: Positive Pulmonary History Comment: MARIPOSA, pneumonia 2015 - Neurologic History Hx Cerebrovascular Accident: Yes Hx Seizures: No Hx Dementia: No Neurologic History Comment: CVA 2014. Pt on Plavix. - Endocrine History Hx Diabetes: No Endocrine History Comment: thyroid dx - Renal History Hx Renal Disorders: Yes Renal History Comment: BPH, prostate CA - Liver History Hx Hepatic Disorders: No - Neurological & Psychiatric Hx Hx Neurological and Psychiatric Disorders: Yes Neurological / Psychiatric History Comment: anxiety-on Rx - Cancer History Hx Cancer: Yes Cancer History Comment: prostate - Congenital Disorder History Hx Congenital Disorders: No - GI History Hx Gastrointestinal Disorders: Yes Gastrointestinal History Comment: hx GERD, bowel obstruction 2011 - Other Health History Other Health History: Meniere's Dx - Chronic Pain History Chronic Pain: No - Surgical History Prior Surgeries: R elbow surgery. R elbow hardware removal ANE Review of Systems Review of systems is: negative Review of Systems: - Exercise capacity METS (RN): 4 METS ANE Patient History - Allergies Allergies/Adverse Reactions: aspirin [Aspirin] Allergy (Severe, Verified 05/04/17 14:01) Asthma Exacerbation NSAIDS (Non-Steroidal Anti-Inflamma [Nsaids] Allergy (Severe, Verified 05/04/17 14:01) Asthma Exacerbation levofloxacin [From Levaquin] Allergy (Verified 05/04/17 14:01) - Home Medications Home medications: home medication list seen and reviewed Home Medications: Nystatin 05/11/17 [Last Taken 05/17/17] Tudorza Pressair 05/11/17 [Last Taken 05/17/17] - NPO status NPO Since - Liquids (Date): 05/18/17 NPO Since - Liquids (Time): 07:00 NPO Since - Solids (Date): 05/19/17 NPO Since - Solids (Time): 03:45 - Anes Hx Anes Hx: no prior problems - Smoking Hx Smoking Status: Former smoker ANE Labs/Vital Signs - Vital Signs Blood Pressure: 108/68 Heart Rate: 48 Respiratory Rate: 16 O2 Sat (%): 93 Height: 191.77 cm Weight: 103.873 kg ANE Physical Exam - Airway Neck exam: FROM Mallampati Score: Class 1 Mouth exam: normal dental/mouth exam - Pulmonary Pulmonary: no respiratory distress - Cardiovascular Cardiovascular: regular rate and rhythym - ASA Status ASA Status: III ANE Anesthesia Plan Anesthesia Plan: GA with mask
[2017-05-19] MEDS ORDERED: LIDOCAINE 2% 100 MG/5 ML SYR ONE (08:53)
[2017-05-19] MEDS ORDERED: LIDOCAINE 2% 5 ML SDV ONE (08:54)
[2017-05-19] MEDS ORDERED: PROPOFOL 200 MG/20 ML VIAL ONE ×3 (08:54→09:59)
--- NOTE | 2017-05-19 09:19 | PDGENHP ---
History and Physical - Chief Complaint PHx of colon polyps - History of Present Illness History Information - Allergies/Home Medication List Allergies/Adverse Reactions: aspirin [Aspirin] Allergy (Severe, Verified 05/04/17 14:01) Asthma Exacerbation NSAIDS (Non-Steroidal Anti-Inflamma [Nsaids] Allergy (Severe, Verified 05/04/17 14:01) Asthma Exacerbation levofloxacin [From Levaquin] Allergy (Verified 05/04/17 14:01) Home Medications: Nystatin 05/11/17 [Last Taken 05/17/17] Tudorza Pressair 05/11/17 [Last Taken 05/17/17] I have personally reviewed and updated: family history (No Fhx of colon cancer) Past Medical History: Phx of colon polyps, difficulty with conscious sedation. - Past Medical History asthma, COPD, CVA - Family History Positive for: non-pertinent - Social History Smoking Status: Former smoker Review of Systems Review of Systems: ROS: 10pt was reviewed & negative except for what was stated in HPI & below Physical Exam Physical Exam: Temp Pulse Resp BP Pulse Ox 36.5 C 48 L 16 108/68 93 05/19/17 08:15 05/19/17 08:50 05/19/17 08:50 05/19/17 08:50 05/19/17 08:50 Constitutional: no apparent distress, appears nourished Cardiovascular: regular rate and rhythym, no murmur, rub, or gallop Respiratory: no respiratory distress, no rales or rhonchi, clear to auscultation Gastrointestinal: soft, non-tender abdomen, no palpable masses Skin: warm, normal color Neurologic: AAOx3
[2017-05-19] MEDS ORDERED: NALOXONE HCL 0.4 MG/ML INJ IVP PRN (09:48)
[2017-05-19] MEDS ORDERED: ACETAMINOPHEN 500 MG TAB PO PRN (09:48)
[2017-05-19] MEDS ORDERED: fentaNYL 100 MCG/2 ML INJ IVP PRN (09:48)
[2017-05-19] MEDS ORDERED: ALBUTEROL 3 ML DEYVIAL IH PRN (09:48)
[2017-05-19] MEDS ORDERED: HYDROmorphONE/DILAUDID 1 MG/ML INJ IVP PRN (09:48)
[2017-05-19] MEDS ORDERED: ONDANSETRON 4 MG/2 ML VIAL IVP PRN (09:48)
[2017-05-19] MEDS ORDERED: HYDROCODONE/APAP 5/325 TAB PO PRN (09:48)
[2017-05-19] MEDS ORDERED: oxyCODONE IR 5 MG TAB PO PRN (09:48)
--- NOTE | 2017-05-19 09:48 | POSTANESTH ---
Post Anesthetic Evaluation Cardiovascular Status: Normal, Stable Respiratory Status: Normal, Stable Level of Consciousness/Mental Status: Can Participate in Eval Pain Control: Adequate, Prn Tx Ordered Nausea/Vomiting Control: Adequate, Prn Tx Ordered Complications Possibly Related to Anesthesia: None Noted
--- NOTE | 2017-05-19 10:11 | GIREPORT ---
[facility] - Endoscopy Department Patient Name: Norberto Barba Procedure Date: 05/19/2017 9:31 AM Patient Type: Outpatient Attending MD/ ER Physician: Venu Jesus MD Procedure: Colonoscopy Indications: Follow-up for history of adenomatous polyps in the colon Providers: Venu Jesus MD Medicines: Total IV Anesthesia (TIVA) Complications: No immediate complications. Description of Procedure: After obtaining informed consent, the scope was passed under direct vis ion. Throughout the procedure, the patient's blood pressure, pulse, and oxyg en saturations were monitored continuously. The Colonoscope with irrigatio n channel was introduced through the anus and advanced to the terminal il eum. The colonoscopy was performed without difficulty. The patient tolerated the procedure well. The quality of the bowel preparation was excellent. Findings: The terminal ileum appeared normal. The colon (entire examined portion) appeared normal. The perianal and digital rectal examinations were normal. Estimated Blood Loss: Estimated blood loss: none. Post Op Diagnosis: - The examined portion of the ileum was normal. - The entire examined colon is normal. - No specimens collected. Recommendation: - Discharge patient to home (with escort). - Patient has a contact number available for emergencies. The signs and symptoms of potential delayed complications were discussed with the pat ient. Return to normal activities tomorrow. Written discharge instructions we re provided to the patient. - Advance diet as tolerated today. - Continue present medications. - Repeat colonoscopy is not recommended for surveillance due to advance d age and concurrent health issues. Attending Participation: I personally performed the entire procedure. Venu Jesus MD Venu Jesus MD 05/19/2017 10:11:07 AM This report has been signed electronicallyVenu Jesus MD Number of Addenda: 0 Note Initiated On: 05/19/2017 9:31 AM Total Procedure Duration Time 0 hours 28 minutes 30 seconds [email or web address]
[2017-05-19 10:52] VITALS: RESP 12
[2017-05-19 10:53] VITALS: TEMP 96.8
[2017-05-19 11:06] VITALS: BP 109/77; O2SAT 98
== END 2017-05-19 11:13 | disposition home or self-care (01) ==
LOC: FSGY 07:33
PROVIDERS: ATTEND Internal Medicine Gastroenterology
PROC: 0WJP8ZZ Inspection of Gastrointestinal Tract, Via Natural or Artificial Opening Endoscopic Approach (ICD-10-PCS; principal; 2017-05-19 09:00)
DX: Z86.010 Personal history of colon polyps (principal)
CPT/HCPCS: J2001; J2704

== ENCOUNTER 2017-09-03 11:57 | Observation (INO) | payer OTHER ==
--- NOTE | 2017-09-02 15:20 | GHP ---
[f rep st] PREOP HISTORY AND PHYSICAL DATE OF ADMISSION: 09/03/2017 ADMISSION DIAGNOSIS: Kidney stones. HISTORY OF PRESENT ILLNESS: A 77-year-old gentleman who has had prostate cancer 20 years ago and has a PSA of less than 0.06 in 2018. He has had positive kidney stones in the past, most recent episode 3 months ago and he is not treated. A CT scan shows multiple renal cysts. He reports stones having been uric acid in the past. PAST MEDICAL HISTORY: Positive for prostate cancer. He has had ureteral abscesses, renal cysts. PAST SURGERIES: Back surgery, stones, prostate, thyroid. MEDICATIONS ON ADMISSION: Azithromycin, antihistamine powder, spironolactone, Seroquel, prednisone, Plavix, levothyroxine. ALLERGIES: None. FAMILY HISTORY: Positive for hypertension, diabetes. SOCIAL HISTORY: . REVIEW OF SYSTEMS: Negative for cardiac, respiratory, GI and endocrine. PHYSICAL EXAM: VITAL SIGNS: In the office, 129/78 blood pressure, pulse 65 and regular, and respira tions 16, O2 saturation on room air 92%. GAIT: Normal ambulation. CHEST: Unlabored breathing. HE ART: Regular rate and rhythm. ABDOMEN: Soft. EXTREMITIES: Lower extremities are normal. He is admitted for the above procedure. /[id number]/MODL
--- NOTE | 2017-09-03 08:29 | PDHPUP ---
History & Physical Update H&P update statement: This history and physical update is based on an assessment of the patient which was completed after admission or registration (within 24 hours), but prior to the surgery/procedure. H&P update: H&P reviewed & patient examined, no change in patient's condition since H&P completed
[2017-09-03] MEDS ORDERED: ceFAZolin 2 GM/DEXTROSE 100 ML IV ONE (12:14)
[2017-09-03] MEDS ORDERED: IOPAMIDOL (ISOVUE-M 300) 15 ML VIAL ONE (13:19)
[2017-09-03] MEDS ORDERED: LIDOCAINE 2% JELLY 20 ML (UROJECT) ONE (13:19)
[2017-09-03] MEDS ORDERED: MIDAZOLAM 2 MG/2 ML VIAL IVP ONE (14:06)
--- NOTE | 2017-09-03 14:07 | PDANEPAE ---
ANE History of Present Illness 77 yo for ureteroscopy ANE Past Medical History - Cardiovascular History Hx Hypertension: No Hx Arrhythmias: No Hx Chest Pain: No Hx Coronary Artery / Peripheral Vascular Disease: Yes Hx CHF / Valvular Disease: No Hx Palpitations: No Cardiovascular History Comment: coronary artery plaque - Pulmonary History Hx COPD: Yes Hx Asthma/Reactive Airway Disease: Yes Hx Recent Upper Respiratory Infection: No Hx Oxygen in Use at Home: No Hx Sleep Apnea: Yes Pulmonary History Comment: MARIPOSA, pneumonia 2015 - Neurologic History Hx Cerebrovascular Accident: Yes Hx Seizures: No Hx Dementia: No Neurologic History Comment: CVA 2014. Pt on Plavix. - Endocrine History Hx Diabetes: No Endocrine History Comment: thyroid dx - Renal History Hx Renal Disorders: Yes Renal History Comment: BPH, prostate CA - Liver History Hx Hepatic Disorders: No - Neurological & Psychiatric Hx Hx Neurological and Psychiatric Disorders: Yes Neurological / Psychiatric History Comment: anxiety-on Rx - Cancer History Hx Cancer: Yes Cancer History Comment: prostate - Congenital Disorder History Hx Congenital Disorders: No - GI History Hx Gastrointestinal Disorders: Yes Gastrointestinal History Comment: hx GERD, bowel obstruction 2011 - Other Health History Other Health History: Meniere's Dx - Chronic Pain History Chronic Pain: No - Surgical History Prior Surgeries: R elbow surgery. R elbow hardware removal ANE Review of Systems Review of Systems: - Exercise capacity METS (RN): 4 METS ANE Patient History - Allergies Allergies/Adverse Reactions: aspirin [Aspirin] Allergy (Severe, Verified 05/04/17 14:01) Asthma Exacerbation NSAIDS (Non-Steroidal Anti-Inflamma [Nsaids] Allergy (Severe, Verified 05/04/17 14:01) Asthma Exacerbation levofloxacin [From Levaquin] Allergy (Verified 05/04/17 14:01) - Home Medications Home Medications: Nystatin 100,000 unit 05/11/17 [Last Taken 09/02/17 07:00] Tudorza Pressair 1 spray BID 05/11/17 [Last Taken 05/17/17] Levothyroxine [Synthroid 125 mcg (*)] 125 mcg PO DAILY06 09/03/17 [Last Taken 07:00] - NPO status NPO Since - Liquids (Date): 09/03/17 NPO Since - Liquids (Time): 05:30 NPO Since - Solids (Date): 09/02/17 NPO Since - Solids (Time): 18:30 - Smoking Hx Smoking Status: Former smoker ANE Labs/Vital Signs - Vital Signs Blood Pressure: 118/85 Heart Rate: 65 Respiratory Rate: 16 O2 Sat (%): 93 Height: 6 ft 4 in Weight: 106.594 kg ANE Physical Exam - Airway Neck exam: FROM Mallampati Score: Class 2 Mouth exam: normal dental/mouth exam - Pulmonary Pulmonary: no respiratory distress - Cardiovascular Cardiovascular: regular rate and rhythym ANE Anesthesia Plan Anesthesia Plan: GA w LMA
[2017-09-03] MEDS ORDERED: MIDAZOLAM 2 MG/2 ML VIAL ONE (14:08)
[2017-09-03] MEDS ORDERED: fentaNYL 100 MCG/2 ML INJ ONE ×3 (14:14→16:18)
[2017-09-03] MEDS ORDERED: PROPOFOL/EMULSION 500 MG/50 ML BOTTLE IV ONE (14:14)
[2017-09-03] MEDS ORDERED: ONDANSETRON 4 MG/2 ML VIAL ONE (14:16)
[2017-09-03] MEDS ORDERED: DEXAMETHASONE 4 MG/ML VIAL ONE (14:16)
[2017-09-03] MEDS ORDERED: NALOXONE HCL 0.4 MG/ML INJ IVP PRN (15:44)
[2017-09-03] MEDS ORDERED: ONDANSETRON 4 MG/2 ML VIAL IVP PRN ×2 (15:44→17:04)
[2017-09-03] MEDS ORDERED: ALBUTEROL 3 ML DEYVIAL IH PRN (15:44)
--- NOTE | 2017-09-03 15:46 | POSTANESTH ---
Post Anesthetic Evaluation Cardiovascular Status: Normal, Stable Respiratory Status: Tx Decrease in SpO2 Level of Consciousness/Mental Status: Can Participate in Eval Pain Control: Adequate, Prn Tx Ordered Nausea/Vomiting Control: Adequate, Prn Tx Ordered Complications Possibly Related to Anesthesia: None Noted
[2017-09-03] MEDS: fentaNYL 100 MCG/2 ML INJ IVP PRN ×3 (16:00→18:04)
--- NOTE | 2017-09-03 16:13 | POSTOPPROG ---
Post Op Note Date of Operation: 09/03/17 Surgeon: Kapil Gann Anesthesia: LMA Pre-op Diagnosis: bilateral ureterolithiasis Procedure: bilateral ureteroscopy, laser rt stone, bilateral stents, fluoroscopy Inf/Abcess present in the surg proc area at time of surgery?: No EBL: Minimal Drains: Other (bilateral stents--dictated, stone for analysis)
[2017-09-03] MEDS ORDERED: LR 1,000 ML IV ONE (16:40)
[2017-09-03] MEDS ORDERED: OPIUM/BELLADONNA ALKALO SUPP PR ONE (17:00)
[2017-09-03] MEDS ORDERED: ACETAMINOPHEN 325 MG TAB PO PRN (17:04)
[2017-09-03] MEDS ORDERED: HYDROmorphONE/DILAUDID 1 MG/ML INJ IVP PRN ×2 (17:04→23:52)
[2017-09-03] MEDS ORDERED: ONDANSETRON DISINTEGRATING 4 MG TAB PO PRN (17:04)
[2017-09-03] MEDS ORDERED: D5W 1/2 NS 1,000 ML IV SCH (17:15)
--- NOTE | 2017-09-03 17:39 | GOP ---
[f rep st] OPERATIVE REPORT DATE OF OPERATION: 09/03/2017 SURGEON: Kapil Gann MD PREOPERATIVE DIAGNOSIS: Bilateral ureterolithiasis. POSTOPERATIVE DIAGNOSIS: Bilateral ureterolithiasis. PROCEDURE PERFORMED: bilateral ureteroscopy with laser lithotripsy on the right , bilateral ureteral stents, and bilateral fluoroscopy. FINDINGS: large left ureteral stone, right small stone DESCRIPTION OF PROCEDURE: Underwent general anesthesia. After being prepped and draped in normal sterile fashion, appropriate time-out, his left ureteral orifice was cannulated after passing the scope through a previously radiated prostate bed, and the retrograde revealed a small stone in the ureter, and was able to dislodge it, but then ureteroscoped after passing ureteral access sheath up into the ureter, and visualized each calyx to make sure there were no residual stones and no Pete's plaques, and then extraction of the scope and the sheath, then ureter was in continuity. The ureter did not drain well after the procedure having residual contrast in the ureters, so I elected to place a 4.8, 20 cm stent under fluoroscopic control. Then on the right side, retrograde revealed the proximal ureteral calculus. I was able to pass a guidewire beyond it and passed the ureteral access sheath up. Flexible scope was brought up and I fragmented the stone in multiple pieces and extracted multiple pieces. The ureter was inflamed at the site of the impacted stone, so at that point, placed a 4.7 Multi-Link stent that curled in the renal pelvis, curled in the bladder. At the end of the procedure urobilinogen placed in the urethra. Haney catheter placed. Because of the firmness of his prostate from radiation, I will leave the catheter in overnight and have him remove it at home , and then see me in approximately a week for stent removal bilateral. /[id number]/MODL MTDD
[2017-09-03] MEDS: OXYCODONE/APAP 5/325 TAB PO PRN ×2 (18:56→23:21)
[2017-09-03] MEDS ORDERED: QUEtiapine FUMARATE 50 MG TAB PO SCH (23:45)
[2017-09-03] MEDS ORDERED: ZOLPIDEM TARTRATE 5 MG TAB PO SCH (23:52)
--- NOTE | 2017-09-04 07:08 | SOAPPROG ---
SOSTACIE Progress Note Assessment/Plan: Assessment: Ureterolithiasis Acute POD # 1 stents in and doing well Plan: dc home , stents out as outpatient in 7 to 10 days 09/04/17 09:14 Subjective: doing ok Objective: Vital Signs Temp Pulse Resp BP Pulse Ox 36.6 C 43 L 14 111/72 89 L 09/04/17 04:56 09/04/17 04:56 09/04/17 04:56 09/04/17 04:56 09/04/17 04:56 09/03/17 09/04/17 09/05/17 05:59 05:59 05:59 Intake Total 1120 740 Output Total 909 Balance 211 740 Physical Exam - Physical Exam General Appearance: alert Neck: normal inspection Respiratory: No respiratory distress Back: No CVA tenderness Neuro/Psych: alert, oriented x 3 ICD10 Worksheet Patient Problems: Problems Problem Status Onset Ureterolithiasis Acute Acute ischemic stroke Acute CVA (cerebral vascular accident) Acute Chronic Disease Mgmt/Transitional Care Acute Elevated troponin Acute Pneumonia Acute Rhabdomyolysis Acute - ICD10 Problem Qualifiers (1) Ureterolithiasis
[2017-09-04] MEDS ORDERED: ALBUTEROL 3 ML DEYVIAL IH ONE (08:25)
--- NOTE | 2017-09-04 08:27 | SOAPPROG ---
SOAP Progress Note Assessment/Plan: Assessment: Asthma with some wheezing. SP stone removal. Srinivasan still in place. Plan: Neb treatment for wheezing. Home pr Urology. 09/04/17 08:26 Subjective: Doing well today. Pain is gone from stones. Wants to go home. Objective: Vital Signs Temp Pulse Resp BP Pulse Ox 97.9 F 43 L 14 111/72 89 L 09/04/17 04:56 09/04/17 04:56 09/04/17 04:56 09/04/17 04:56 09/04/17 04:56 09/03/17 09/04/17 09/05/17 05:59 05:59 05:59 Intake Total 1120 740 Output Total 909 Balance 211 740 Lungs witih R base wheezing. Srinivasan in place. COR RRR ICD10 Worksheet Patient Problems: Problems Problem Status Onset Ureterolithiasis Acute Acute ischemic stroke Acute CVA (cerebral vascular accident) Acute Chronic Disease Mgmt/Transitional Care Acute Elevated troponin Acute Pneumonia Acute Rhabdomyolysis Acute
[2017-09-04 08:30] VITALS: BP 128/75
--- NOTE | 2017-09-04 09:32 | GDS ---
[f rep st] DISCHARGE SUMMARY ADMISSION DIAGNOSIS: Bilateral ureterolithiasis. DISCHARGE DIAGNOSIS: Bilateral ureterolithiasis. PROCEDURE: Bilateral ureteroscopy with stone removals and stents. HOSPITAL COURSE: This gentleman was an a.m. admission, had the above procedure performed. It was pl anned to be done as an outpatient, but he had nobody at home to care for him, so he was kept overnigh t. His cath was removed postop day 1. He will be discharged home to see me in the office in 7-10 da ys for stent removal. The stones appeared to be calcium oxalate, primarily on visualization. /[id number]/MODL
--- NOTE | 2017-09-04 10:05 | ASMTLACE ---
CHHAYA Length of stay for Answers: Less than 1 day current admission Acuity / Level of Answers: No Care: Did the patient have an inpatient admission? Comorbidities - select Answers: Any tumor (including all that apply lymphoma or leukemia) Cerebrovascular disease (CVA, TIA, aneurysms, vasc ular dementia) Chronic pulmonary disease Coronary Artery Disease # of Emergency department Answers: 0 visits in the last 6 months Social determinants Answers: Mental health diagnosis (anxiety, depression, pers onality disorders, etc.) Score: 10 Date Signed: 09/04/2017 10:05 AM Electronically Signed By:Bambi Benjamin RN
--- NOTE | 2017-09-04 10:09 | ASMTCMCOM ---
CM Note CM Note Notes: Chart reviewed. Patient medically cleared for dc to home per urology. No needs identified. CM available should other needs arise. Plan:Home with no needs. Date Signed: 09/04/2017 10:08 AM Electronically Signed By:Bambi Benjamin RN
[2017-09-04] MEDS ORDERED: POLYETHYLENE GLYCOL 3350 17 GM PKT PO ONE (11:30)
== END 2017-09-04 11:55 | disposition home or self-care (01) ==
LOC: FSGY 11:57 → F3E 17:04 → F1N 18:13
PROVIDERS: ADMIT Specialist; ATTEND Specialist
DX: N20.1 Calculus of ureter (principal); Z85.46 Personal history of malignant neoplasm of prostate; J45.909 Unspecified asthma, uncomplicated; G47.33 Obstructive sleep apnea (adult) (pediatric); F41.9 Anxiety disorder, unspecified; Z86.73 Personal history of transient ischemic attack (TIA), and cerebral infarction without residual deficits; Z79.01 Long term (current) use of anticoagulants
CPT/HCPCS: 52332; 52352; 52356; 76001; C1758; C1769; C1894; 82365-90; C2625; J0690; J1100; J1170; J2250; J2270; J2405; J2704; J3010; J7613; Q9967

== ENCOUNTER → 2017-12-15 | Outpatient (CLI) | payer OTHER | LOC: BMCIMAGING 11:36 | PROVIDERS: ATTEND Podiatrist Foot & Ankle Surgery | DX: M25.871 Other specified joint disorders, right ankle and foot (principal); M25.872 Other specified joint disorders, left ankle and foot ==

== ENCOUNTER 2018-04-22 15:53 | Observation (INO) | payer OTHER ==
[2018-04-22] MEDS ORDERED: ACETAMINOPHEN 325 MG TAB PO PRN (17:34)
[2018-04-22] MEDS ORDERED: ONDANSETRON DISINTEGRATING 4 MG TAB PO PRN (17:34)
[2018-04-22] MEDS ORDERED: ONDANSETRON 4 MG/2 ML VIAL IVP PRN (17:34)
[2018-04-22] MEDS ORDERED: NS 1,000 ML IV SCH (17:45)
--- NOTE | 2018-04-22 17:58 | SOAPPROG ---
SOAP Progress Note Assessment/Plan: Assessment: Plan: 04/22/18 18:14 Asthma/COPD: Acute exacerbation, unresponsive to oral steroids. Possibly triggered by viral infection. Begin IV steroids, antibiotics. Will check labs, CXR, begin fluids as BP low for him, and he hasn't been able to care for himself all that well in last few days. No hypoxia. MARIOPSA: on CPAP, but not wanting to bring machine to hospital. Will continue with oxygen at night. Hypothyroid: on levothyroxine Hx CVA: continue plavix twice weekly Anxiety: uses valium prn Depression: on Wellbutrin, seroquel Insomnia: on ambien, seroquel Hyperlipidemia: on atorvastatin DVT prophylaxis: due to hx of CVA, will use lovenox Dispo: anticipate greater than 2 MNs given severily of asthma exacerbation. 04/22/18 20:07 04/22/18 20:29 Subjective: 77 yo male with hx of asthma who had been doing well for the last couple of months until 04/17/18 when he developed chest congestion. He took 60mg prednisone on 04/17 and 04/18 without much change in his symptoms, though peak flows at home remained 400 or higher. He was seen in the office on 04/19/18. Pulmonary exam minimally abnormal, peak flow 440, and no hypoxia. Was felt to have viral infection. Advised to take prednisone 30mg for the next two days. He did take 30mg on 04/19 but none on 04/20. He then took 40mg prednisone yesterday, none so far today. Seen in the office today and peak flows down to 250-300. Still coughing, SOB. Feels exhausted and unable to care for himself as he doesn' t have the energy. Is eating some. No fever but has felt feverish, and no chills but has felt cold. Has been wheezing, cough minimally productive. Started to have chest wall pain from coughing. BP low at 98/54, and decision made to admit for IV steroids, antibiotics, fluids. Objective: Vital Signs Temp Pulse Resp BP Pulse Ox 36.4 C 66 22 H 128/78 H 92 04/22/18 17:42 04/22/18 17:42 04/22/18 17:42 04/22/18 17:42 04/22/18 17:42 General: ill-appearing, NAD HEENT: NC/AT. PERRL, EOMI. Auditory canals clear, TMs without erythema. Oropharynx without erythema, no lesions. Neck: no thyroid tenderness, no cervical adenopathy CV: RRR, no murmur Lungs: decreased breath sounds throughout, absent in bases. Moving air, no wheezing, rales, rhonchi Abdomen: +bowel sounds, soft, NT, no hepatosplenomegaly, masses Extremities: RLE with 1+ edema (chronic per pt), LLE without edema Neurologic: alert, irritable ICD10 Worksheet Patient Problems: Problems Problem Status Onset Acute ischemic stroke Acute CVA (cerebral vascular accident) Acute Chronic Disease Mgmt/Transitional Care Acute Elevated troponin Acute Pneumonia Acute Rhabdomyolysis Acute Ureterolithiasis Acute
[2018-04-22] MEDS: methylPREDNISolone SOD SUCC 125 MG/2 ML VIAL IVP SCH ×2 (18:42→23:10)
[2018-04-22] MEDS: AZITHROMYCIN IV 250 MG in NS 250 ML IV SCH (18:47)
[2018-04-22 19:09] LABS: PLATELET COUNT 146 10^3/uL (150-400)
[2018-04-22] MEDS ORDERED: CLOPIDOGREL BISULFATE 75 MG TAB PO SCH (20:00)
[2018-04-22] MEDS ORDERED: ZOLPIDEM TARTRATE 5 MG TAB PO PRN (20:20)
[2018-04-22] MEDS: IPRATROPIUM/ALBUTEROL 3 ML DEYVIAL IH SCH (20:48)
[2018-04-22] MEDS: BUDESONIDE 0.5 MG/2 ML AMPUL.NEB IH SCH (20:50)
[2018-04-22] MEDS ORDERED: QUEtiapine FUMARATE 100 MG TAB PO SCH (21:00)
--- NOTE | 2018-04-22 21:08 | GHP ---
[f rep st] HISTORY AND PHYSICAL DATE OF ADMISSION: 04/22/2018 HISTORY OF PRESENT ILLNESS: The patient is a 77-year-old male with a history of asthma and COPD who had been doing quite well for the last couple of months until this 04/17/2018, when he developed chest congestion. He took 60 mg of prednisone on both April 17 and April 18 without much change in his symptoms, though his peak flows at home remained at 400 or higher. He was subsequently seen in the office on 04/19/2018. Pulmonary exam was minimally abnormal and his peak flow was 440. There was no hypoxia. He was felt to have a viral infection. He was advised to take prednisone 30 mg for the next 2 days. He did take 30 mg on April 19, but did not take any on April 20. He then took 40 mg yesterday and has taken none so far today. He is seen in the office today again and his peak flows have dropped down to 250-300. He continues to cough and feels short of breath. He also feels exhausted and unable to care for himself, as he just does not have the energy to do so. He is eating some. He has had no fever but has felt feverish and he has had no chills, but has felt cold. He has been wheezing. Cough is minimally productive. He has started to have chest wall pain from coughing. Blood pressure today is low at 98/54 and a decision is made to directly admit him for IV steroids, antibiotics and fluids. PAST MEDICAL HISTORY: Asthma, COPD, hypertension, hypothyroidism, recurrent sinusitis, coronary artery disease, CVA, obstructive sleep apnea, anxiety, hyperlipidemia, GERD, thyroid cancer, thymus cancer, prostate cancer, Meniere's disease, depression. MEDICATIONS: Fluconazole 200 mg daily as needed, chlorthalidone 50 mg daily, albuterol sulfate nebulizer twice daily, azithromycin 250 mg every other day, lorazepam 0.5 mg 1/2 to 1 tablet as needed, clonazepam 0.5 mg twice a day as needed, levothyroxine 125 mcg daily, Ambien 10 mg daily, omega-3 fatty acids, Xolair 150 mg daily, niacin 250 mg daily, vitamin D 5,000 international units daily, Viagra 100 mg as needed, Wellbutrin XL 150 mg daily, clobetasol 0.05% ointment twice daily, Plavix 75 mg twice weekly, Seroquel 200 mg at bedtime, albuterol inhaler as needed every 4 hours, atorvastatin 10 mg daily, montelukast sodium 10 mg daily, Dulera 100-5 mcg 2 puffs twice a day, ipratropium bromide solution as needed, Stiolto Respimat 2.5-2.5 two puffs once a day, nystatin 1000 units per mL 5 mL swish and swallow 4 times daily. ALLERGIES: Levaquin caused a ruptured Achilles tendon, aspirin. SURGICAL HISTORY: Right elbow hardware removal. FAMILY HISTORY: Noncontributory. REVIEW OF SYSTEMS: GENERAL: As per HPI. RESPIRATORY: As per HPI. PHYSICAL EXAMINATION: VITAL SIGNS: Temperature 36.4, pulse 66, respirations 22 , blood pressure 128/78, O2 saturation 92% on room air. GENERAL: He is ill- appearing but in no acute distress. HEENT: Normocephalic, atraumatic. Pupils are equal, round, reactive to light. Extraocular movements are intact. Auditory canals are clear. TMs without erythema. Oropharynx without erythema. No lesions. NECK: Supple. No thyroid tenderness or cervical adenopathy. CARDIOVASCULAR: Regular rate and rhythm. No murmur. LUNGS: Decreased breath sounds throughout with absent breath sounds in bases. He is moving air. No wheezing, rales or rhonchi noted. ABDOMEN: Bowel sounds present. Soft, nontender. No hepatosplenomegaly or masses. EXTREMITIES: Right lower extremity with 1+ edema which is chronic per patient. Left lower extremity without edema. NEUROLOGIC: He is alert, though irritable. ASSESSMENT AND PLAN: 1. Asthma/chronic obstructive pulmonary disease: Acute exacerbation unresponsive to oral steroids, possibly triggered by viral infection. The patient is being admitted for IV steroids and antibiotics. Will continue his usual nebulizers and other medications for COPD and asthma. We will check labs and chest x-ray and begin fluids due to his low blood pressure. He is not hypoxic. 2. Obstructive sleep apnea on CPAP, but not wanting to bring his machine to the hospital, so we will continue with oxygen at night. 3. Hypothyroid on levothyroxine. 4. History of CVA. Continue Plavix twice weekly. 5. Anxiety. Uses Valium p.r.n. 6. Depression on Wellbutrin and Seroquel. We will continue these. 7. Insomnia on Ambien and Seroquel. 8. Hyperlipidemia on atorvastatin. 9. DVT prophylaxis. Given his history of CVA, we will go ahead and prophylax with Lovenox. DISPOSITION: Anticipate greater than 2 midnights due to severity of asthma exacerbation. /[id number]/MODL MTDD
[2018-04-22] MEDS: DIAZEPAM 5 MG TAB PO PRN (21:26)
[2018-04-22] MEDS: buPROPion XL 150 MG TAB PO SCH (21:27)
[2018-04-22] MEDS: Mometasone/Formoterol [Dulera] 100 Mcg/5 Mcg Inhaler IH SCH (21:29)
[2018-04-22] MEDS: NYSTATIN SUSP 500000 UNIT/5 ML UD LIQ PO SCH (21:29)
[2018-04-23] MEDS: Mometasone/Formoterol [Dulera] 100 Mcg/5 Mcg Inhaler IH SCH (05:58)
[2018-04-23] MEDS ORDERED: LEVOTHYROXINE 125 MCG TAB PO SCH (06:00)
[2018-04-23] MEDS: BUDESONIDE 0.5 MG/2 ML AMPUL.NEB IH SCH (06:41)
[2018-04-23] MEDS: IPRATROPIUM/ALBUTEROL 3 ML DEYVIAL IH SCH ×4 (06:41→16:49)
[2018-04-23] MEDS: methylPREDNISolone SOD SUCC 125 MG/2 ML VIAL IVP SCH (06:43)
[2018-04-23] MEDS: AZITHROMYCIN IV 250 MG in NS 250 ML IV SCH (08:04)
[2018-04-23] MEDS: buPROPion XL 150 MG TAB PO SCH (08:49)
--- NOTE | 2018-04-23 08:50 | SOAPPROG ---
SOAP Progress Note Assessment/Plan: Assessment: Asthma with exacerbation. Probable viral infection. Plan: Agree with azithromycin. Will change ot oral antiviotics. Home this afteroon if stable. 04/23/18 08:49 Subjective: Doing better. Not short of breath. o fever. Non-productive cough. Objective: Vital Signs Temp Pulse Resp BP Pulse Ox 97.5 F 75 18 134/84 H 91 L 04/23/18 08:00 04/23/18 08:00 04/23/18 08:00 04/23/18 08:00 04/23/18 08:00 Laboratory Results 04/22/18 18:30 04/22/18 18:30 04/22/18 04/23/18 04/24/18 05:59 05:59 05:59 Intake Total 350 Output Total 275 Balance 75 Lungs with mild wheezing. No rales. Improved breath sounds in the bases. ICD10 Worksheet Patient Problems: Problems Problem Status Onset Acute ischemic stroke Acute CVA (cerebral vascular accident) Acute Chronic Disease [facility] Acute Elevated troponin Acute Pneumonia Acute Rhabdomyolysis Acute Ureterolithiasis Acute
[2018-04-23] MEDS: NYSTATIN SUSP 500000 UNIT/5 ML UD LIQ PO SCH (08:52)
[2018-04-23] MEDS: DIAZEPAM 5 MG TAB PO PRN (08:56)
[2018-04-23] MEDS ORDERED: OMEGA-3 FATTY ACIDS 1,000 MG CAP PO SCH (09:00)
[2018-04-23] MEDS ORDERED: CHLORTHALIDONE 25 MG TAB PO SCH (09:00)
[2018-04-23] MEDS ORDERED: Tiotropium Br/Olodaterol Hcl [Stiolto Respimat Inhal Spray] IH SCH (09:00)
[2018-04-23] MEDS ORDERED: Herbals/Supplements -Info Only PO SCH (09:00)
[2018-04-23] MEDS ORDERED: ENOXAPARIN 40 MG/0.4 ML SYR SC SCH (09:00)
[2018-04-23] MEDS ORDERED: ATORVASTATIN CALCIUM 10 MG TAB PO SCH (09:00)
--- NOTE | 2018-04-23 09:44 | ASMTCMCOM ---
CM Note CM Note Notes: Pt is a 77 y/o man admitted for asthma. This is a [facility] pt. Therapies have been ordered and awaiting recommendations. Needs are TBD at this time. CM to follow. Plan: TBD Date Signed: 04/23/2018 09:44 AM Electronically Signed By:DARIA John
[2018-04-23] MEDS ORDERED: Mometasone/Formoterol [Dulera 200 Mcg/5 Mcg Inhaler] 1 PUFFS IH SCH (16:30)
[2018-04-23] MEDS ORDERED: OLODATEROL HCL IH SCH (16:45)
[2018-04-23] MEDS ORDERED: TIOTROPIUM BR IH SCH (16:45)
[2018-04-23 17:10] VITALS: BP 142/80
[2018-04-23] MEDS ORDERED: predniSONE 10 MG TAB PO SCH (18:00)
[2018-04-23] MEDS ORDERED: MONTELUKAST SODIUM 10 MG TAB PO SCH (18:00)
[2018-04-23] MEDS ORDERED: ALBUTEROL 3 ML DEYVIAL IH SCH (21:00)
[2018-04-24] MEDS ORDERED: AZITHROMYCIN 250 MG TAB PO SCH (09:00)
== END 2018-04-23 18:03 | disposition home or self-care (01) ==
LOC: F3E 17:22
PROVIDERS: ADMIT Internal Medicine; ATTEND Internal Medicine
DX: J44.1 Chronic obstructive pulmonary disease with (acute) exacerbation (principal); Z79.52 Long term (current) use of systemic steroids; I10 Essential (primary) hypertension; E03.9 Hypothyroidism, unspecified; I25.10 Atherosclerotic heart disease of native coronary artery without angina pectoris; G47.00 Insomnia, unspecified; G47.33 Obstructive sleep apnea (adult) (pediatric); E78.5 Hyperlipidemia, unspecified; F41.8 Other specified anxiety disorders; K21.9 Gastro-esophageal reflux disease without esophagitis; Z85.46 Personal history of malignant neoplasm of prostate; Z85.238 Personal history of other malignant neoplasm of thymus; Z85.850 Personal history of malignant neoplasm of thyroid; Z86.73 Personal history of transient ischemic attack (TIA), and cerebral infarction without residual deficits
CPT/HCPCS: 71046; 97161; G0378; J0456; J0696; J1650; J2930; J7626; J7512

== ENCOUNTER → 2018-07-11 | Outpatient (CLI) | payer OTHER | LOC: FIMAGING 13:25 | PROVIDERS: ATTEND Physical Medicine & Rehabilitation | DX: M54.2 Cervicalgia (principal); G95.89 Other specified diseases of spinal cord; M53.82 Other specified dorsopathies, cervical region; M79.12 Myalgia of auxiliary muscles, head and neck ==

== ENCOUNTER 2018-08-06 19:10 | Emergency (ER) | payer OTHER | END 2018-08-06 20:38 | disposition home or self-care (01) ==

== ENCOUNTER 2018-08-07 09:32 | Emergency (ER) | payer OTHER | END 2018-08-07 11:58 | disposition left against medical advice (07) ==

== ENCOUNTER 2018-08-11 14:16 | Inpatient (IN) | payer OTHER | END 2018-08-14 13:29 | disposition home or self-care (01) | LOC: F3E 14:16 ==